=== PATIENT | female | born 1995 | race Caucasian/White ===

== ENCOUNTER 2017-11-25 22:17 | Emergency (ER) | payer OTHER ==
[~2017-11-25] VITALS: Ht 165.1 cm; Wt 85.5 kg
[2017-11-25 22:23] VITALS: BP 141/70; TEMP 99.5
[2017-11-25 23:31] LABS: BASO % 0.4 % (0.0-2.0); EOS # 0.1 (0.0-0.7); EOS % 0.9 % (0-4.0); GRAN # 5.1 (1.4-6.5); GRAN % 64.1 % (42.2-75.2); HEMOGLOBIN 12.1 g/dl (12.5-16.0); LYMPH % 25.3 % (20.0-51.0); MEAN CELL VOLUME 89 fl (80.0-100.0); MEAN CORPUSCULAR HEMOGLOBIN 31 pg (27.0-31.0); MEAN CORPUSCULAR HGB CONC 35 g/dl (33.0-37.0); MEAN PLATELET VOLUME 13.4 fl (7.4-10.4); MONO # 0.7 (0.1-0.6); MONO % 9.2 % (1.7-9.3); PLATELET COUNT 187 K/mm3 (130-400); RED BLOOD COUNT 3.89 M/mm3 (4.10-5.30); REDCELL DISTRIBUTION WIDTH-CV 12.4 % (11.5-14.5)
[2017-11-25 23:32] LABS: HEMATOCRIT 34.6 % (37.0-47.0)
[2017-11-25 23:57] LABS: CALCIUM 9.3 mg/dL (8.4-10.2); CREATININE, serum 0.81 mg/dL (0.52-1.25); POTASSIUM 3.8 mmol/L (3.4-5.0)
[2017-11-26] MEDS ORDERED: NAPROXEN 3375 MG/TAB PO (00:26)
[2017-11-26] MEDS ORDERED: NEXIUM 20MG20 MG PO (00:26)
[2017-11-26] MEDS ORDERED: ANTIVERT 25MG25 MG PO (00:37)
[2017-11-26 00:43] VITALS: PULSE 85
== END 2017-11-26 00:43 | disposition home or self-care (01) ==
LOC: COL.ER 22:17
PROVIDERS: Emergency Medicine
DX: K21.9 Gastro-esophageal reflux disease without esophagitis (principal); F41.9 Anxiety disorder, unspecified; M54.10 Radiculopathy, site unspecified; R06.4 Hyperventilation

== ENCOUNTER 2019-01-10 17:16 | Emergency (ER) | payer BC ==
[~2019-01-10] VITALS: Ht 165.1 cm; Wt 85.0 kg
[~2019-01-10 17:16] MED LIST: ANTIVERT 25MG25 MG PO; NAPROXEN 3375 MG/TAB PO; NEXIUM 20MG20 MG PO
[2019-01-10 17:25] VITALS: TEMP 98.2
[2019-01-10 18:21] LABS: BASO % 0.3 % (0.0-2.0); EOS % 0.4 % (0-4.0); GRAN % 75.9 % (42.2-75.2); HEMATOCRIT 37.3 % (37.0-47.0); HEMOGLOBIN 13.1 g/dl (12.5-16.0); LYMPH # 1.6 (1.2-3.4); LYMPH % 15.2 % (20.0-51.0); MEAN CELL VOLUME 89 fl (80.0-100.0); MEAN CORPUSCULAR HEMOGLOBIN 31 pg (27.0-31.0); MEAN CORPUSCULAR HGB CONC 35 g/dl (33.0-37.0); MEAN PLATELET VOLUME 13.3 fl (7.4-10.4); MONO # 0.8 (0.1-0.6); MONO % 7.8 % (1.7-9.3); PLATELET COUNT 164 K/mm3 (130-400); RED BLOOD COUNT 4.19 M/mm3 (4.10-5.30); REDCELL DISTRIBUTION WIDTH-CV 12.3 % (11.5-14.5)
[2019-01-10 18:30] LABS: ALBUMIN 4.5 gm/dL (3.5-5.0); BILIRUBIN,TOTAL 0.4 mg/dL (0.0-1.0); CALCIUM 9.7 mg/dL (8.4-10.2); CREATININE, serum 0.68 (0.52-1.25); TOTAL PROTEIN 7.8 gm/dL (6.4-8.2)
[2019-01-10 19:01] LABS: TSH w REFLEX 1.51 uIU/mL (0.465-4.680)
[2019-01-10 20:36] VITALS: BP 116/63; PULSE 87
== END 2019-01-10 20:36 | disposition home or self-care (01) ==
LOC: COL.ER 17:16
PROVIDERS: Physician Assistant
DX: O26.891 Other specified pregnancy related conditions, first trimester (principal); O26.611 Liver and biliary tract disorders in pregnancy, first trimester; D18.03 Hemangioma of intra-abdominal structures; R06.00 Dyspnea, unspecified; Z3A.01 Less than 8 weeks gestation of pregnancy; Z90.89 Acquired absence of other organs
CPT/HCPCS: Q9967

== ENCOUNTER 2019-09-04 11:47 | Inpatient (IN) | payer BC ==
[~2019-09-04] VITALS: Ht 165.1 cm; Wt 100.0 kg
--- NOTE | 2019-09-04 19:00 | NUR ---
HERE WITH SPOUSE FOR LABOR INDUCTION. PLAN OF CARE REVIEWED WITH PT A DN SPOUSE. EFM ON . PERMITS OBTAINED.UTERINE ACTIVITY Q 2-4 MIN SHOWN ON EFM PT UNAWARE OF PAIN OR DISCOMFORT
[2019-09-04 19:14] VITALS: BP 125/80; PULSE 96; TEMP 98.1
[2019-09-04 20:00] VITALS: BP 130/78; PULSE 88; TEMP 98.1
[2019-09-04 20:45] VITALS: BP 125/58; PULSE 90; TEMP 98.2
[2019-09-04 20:46] LABS: BASO % 0.2 % (0.0-2.0); EOS % 0.2 % (0-4.0); GRAN # 7.8 (1.4-6.5); GRAN % 72.8 % (42.2-75.2); HEMOGLOBIN 11.1 g/dl (12.5-16.0); LYMPH # 1.9 (1.2-3.4); LYMPH % 17.3 % (20.0-51.0); MEAN CELL VOLUME 85 fl (80.0-100.0); MEAN CORPUSCULAR HEMOGLOBIN 28 pg (27.0-31.0); MEAN CORPUSCULAR HGB CONC 33 g/dl (33.0-37.0); MONO # 0.9 (0.1-0.6); MONO % 8.8 % (1.7-9.3); PLATELET COUNT 138 K/mm3 (130-400); RED BLOOD COUNT 3.98 M/mm3 (4.10-5.30)
[2019-09-04 21:30] VITALS: BP 133/73; PULSE 93
[2019-09-04 22:30] VITALS: BP 114/59; PULSE 78; TEMP 97.2
[2019-09-04 23:30] VITALS: BP 124/77; PULSE 74
[2019-09-05] VITALS (75 sets, daily range): BP systolic 93–150; BP diastolic 44–90; PULSE 76–128; TEMP 97.3–98.9
--- NOTE | 2019-09-05 01:15 | NUR ---
DENIES CTXS. AMBULATES TO BR-VOIDS EASLY. SPOUSE ASLEEP AT BEDSIDE. PT SLEEPS BRIEFLY BETWEEN DISTURBANCES.
--- NOTE | 2019-09-05 06:40 | NUR ---
0640: Patient off monitors and up to bathroom to void. Back to bed and monitors adjusted. 0647: Patient states she is feeling some cramping in her side. First dose of Pen G started and infusing without difficulty. Patient resting in bed, call light in reach and at bedside.
--- NOTE | 2019-09-05 07:48 | NUR ---
0748: Patient off monitors and up to bathroom. Void and BM. Patient back to bed and monitors adjusted. Patient feeling cramping in lower abdomen.
--- NOTE | 2019-09-05 09:15 | NUR ---
0915: Patient off monitors and up to bathroom to void. Patient standing at side of bed after bathroom. Monitors adjusted.
--- NOTE | 2019-09-05 09:45 | NUR ---
0945: Dr. Shanks in room. SVE /-[address] Shanks. Moderate amount of clear fluid noted with AROM. scalp stimulation noted with SVE and AROM. Patient tolerates well. Patient breathing through contractions. Dr. Shanks gives verbal order at bedside that patient can have epidural when desires.
--- NOTE | 2019-09-05 10:41 | NUR ---
1040: Tiana Stacy CRNA in room. Epidural procedure explained and health hx reviewed. Time out completed. 1041: Second dose of Pen G infusing. 1045: Epidural single shot given. No reaction to single shot. Epidural catheter placed. Epidural catheter secured to patients back. 1050: Patient repositioned in bed, wedged right. See anesthesia records. 1055: Patient states she is feeling nauseated. BP 93/44, pulse 115. LR bolus infusing. 1057: 10mg Ephedrine given IV. 1100: BP 118/69, pulse 103. Patient states she is feeling better and denies nausea.
--- NOTE | 2019-09-05 11:25 | NUR ---
1125: Doss catheter placed using sterile technique. Patient tolerate well. 1128: SVE 3-4/80/-3. Pitocin increased.
--- NOTE | 2019-09-05 12:02 | NUR ---
1202: Dr. Shanks at nurses station and reviews FHR and contractions. SVE and IUPC placed by Dr. Shanks.
--- NOTE | 2019-09-05 15:40 | NUR ---
Patient resting comfortably in bed. SVE 3-4/80/-2. Pericare and catheter care provided.
--- NOTE | 2019-09-05 15:50 | NUR ---
Tachysystole noted and pitocin off at 1555 due to heart rate deceleration.
--- NOTE | 2019-09-05 15:53 | NUR ---
FHR prolonged deceleration down to 90-100 bpm lasting for 3.5 minutes. Pitocin off, patient moved to right lateral, oxygen on via face mask and LR bolus infusing. 1558: SVE 3-4/80/-2. Patient remain in far right lateral.
--- NOTE | 2019-09-05 16:15 | NUR ---
Oxygen off at this time
--- NOTE | 2019-09-05 16:45 | NUR ---
1645: Dr. Shanks at nurses station and reviews FHR and contraction pattern back to 1545. 1648: Dr. Shanks at bedside. SVE /-[address] Shanks. Discussed with patient to continue with restarting pitocin or with section. Patient would like to continue with restarting pitocin. Verbal order at bedside from Dr. Shanks to restart pitocin at 10mu/min. While Dr. Shanks in room isolated FHR deceleration down to 100-110 bpm lasting for [address] Shanks gives verbal order to reposition patient to upright position. Patient repositioned and pitocin started at 10mu/min at 1655. Dr. Shanks remains at nurses station.
--- NOTE | 2019-09-05 18:00 | NUR ---
SVE and no cervical change noted. Patient tearful but would like to continue with pitocin at this time. Dr. Shanks called with update.
--- NOTE | 2019-09-05 19:10 | NUR ---
1910 DR LAIRD HERE. SVE DONE WITH NO CERVICAL CHANGE. C/SECT DISCUSSED. PITOCIN OFF AND C/S CALLED.
--- NOTE | 2019-09-05 19:25 | NUR ---
1925 READIED FOR SURGERY 1930 TO OR PER BED.
--- NOTE | 2019-09-05 22:10 | NUR ---
2210 PERICARE DONE. EPID CATH REMOVED AND ABD BINDER ON. IV FLUIDS CONT TO INFUSE. READY FOR SLEEP.
--- NOTE | 2019-09-05 23:25 | NUR ---
2325 PERICARE DONE AND PAD CHANGED. IV TO INT. LIGHTS OUT TO SLEEP
[2019-09-06 00:30] VITALS: BP 134/74; PULSE 91
[2019-09-06 05:00] VITALS: BP 109/65; PULSE 116; TEMP 97.7
--- NOTE | 2019-09-06 07:30 | NUR ---
Ambulates to the nurses station. Gets baby from the nursery. Assessment done, denies any needs at this time.
[2019-09-06 07:45] VITALS: BP 127/72; PULSE 92; TEMP 98
[2019-09-06 07:54] LABS: BASO % 0.2 % (0.0-2.0); EOS % 0.1 % (0-4.0); GRAN # 13.1 (1.4-6.5); GRAN % 80.6 % (42.2-75.2); LYMPH # 1.6 (1.2-3.4); LYMPH % 9.9 % (20.0-51.0); MEAN CORPUSCULAR HGB CONC 31 g/dl (33.0-37.0); MONO # 1.4 (0.1-0.6); MONO % 8.6 % (1.7-9.3); PLATELET COUNT 153 K/mm3 (130-400); RED BLOOD COUNT 3.51 M/mm3 (4.10-5.30); REDCELL DISTRIBUTION WIDTH-CV 14.6 % (11.5-14.5)
[2019-09-06 08:12] LABS: HEMATOCRIT 31.5 % (37.0-47.0); HEMOGLOBIN 9.9 g/dl (12.5-16.0); MEAN CELL VOLUME 90 fl (80.0-100.0); MEAN CORPUSCULAR HEMOGLOBIN 28 pg (27.0-31.0)
--- NOTE | 2019-09-06 08:30 | NUR ---
Rests in bed, alert. Denies any needs at this time.
--- NOTE | 2019-09-06 09:29 | NUR ---
Ibuprofen 600 mg given as ordered.
--- NOTE | 2019-09-06 10:30 | NUR ---
Rests in bed, alert. States just fed baby.
[2019-09-06 13:00] VITALS: BP 121/69; PULSE 100; TEMP 98.2
--- NOTE | 2019-09-06 13:20 | NUR ---
Rests in bed, alert. Percocet 5/325 mg two given per request. Ice pack to lower right area for pain.
[2019-09-06 16:45] VITALS: BP 133/73; PULSE 104; TEMP 97.3
[2019-09-06 21:00] VITALS: BP 124/68; PULSE 77; TEMP 97.5
--- NOTE | 2019-09-07 08:00 | NUR ---
Rests in bed, alert. Visits with family. 0816 Percocet 5/325 mg two given per request and as ordered.
[2019-09-07 08:45] VITALS: BP 128/72; PULSE 101; TEMP 98
--- NOTE | 2019-09-07 14:00 | NUR ---
Rests in bed, alert. Percocet 5/325 mg two given per request and as ordered.
[2019-09-07 16:45] VITALS: BP 117/59; PULSE 92; TEMP 97
[2019-09-07 23:20] VITALS: BP 122/68; PULSE 100; TEMP 98.1
[2019-09-08 07:15] VITALS: BP 106/49; PULSE 86; TEMP 97.6
[2019-09-08] MEDS ORDERED: IBU600 MG PO (08:49)
[2019-09-08] MEDS ORDERED: PERCOCET 325 MG1 TA2 PO (08:49)
== END 2019-09-08 12:45 | disposition home or self-care (01) | DRG 787 ==
LOC: OB 11:47 → LDR 19:04 → OB 09-05 21:30
PROVIDERS: ADMIT Obstetrics & Gynecology
PROC: 10D00Z1 Extraction of Products of Conception, Low, Open Approach (ICD-10-PCS; principal; 2019-09-04)
PROC: 3E0P7VZ Introduction of Hormone into Female Reproductive, Via Natural or Artificial Opening (ICD-10-PCS; 2019-09-04)
DX: O48.0 Post-term pregnancy (principal); D62 Acute posthemorrhagic anemia; O13.4 Gestational [pregnancy-induced] hypertension without significant proteinuria, complicating childbirth; Z3A.40 40 weeks gestation of pregnancy; Z37.0 Single live birth; O99.824 Streptococcus B carrier state complicating childbirth; O62.0 Primary inadequate contractions; O76 Abnormality in fetal heart rate and rhythm complicating labor and delivery; O99.214 Obesity complicating childbirth; E66.9 Obesity, unspecified; O90.81 Anemia of the puerperium
CPT/HCPCS: J0690; J1885; J2270; J2405; J2540; J2590; J2704; J2795; J3010; J7120